=== PATIENT | male | born 1940 | race African-American/Black ===

== ENCOUNTER 2017-07-20 23:29 | Emergency (ER) | payer OTHER ==
[~2017-07-20] VITALS: Ht 167.6 cm; Wt 77.0 kg
[2017-07-20] MEDS ORDERED: SODIUM CHLORIDE 0.9% 1,000 ML IV ONE (23:38)
[2017-07-21 02:12] VITALS: BP 154/92
== END 2017-07-21 02:10 | disposition home or self-care (01) ==
LOC: ER 23:51
DX: S09.90XA Unspecified injury of head, initial encounter (principal); S39.012A Strain of muscle, fascia and tendon of lower back, initial encounter; S16.1XXA Strain of muscle, fascia and tendon at neck level, initial encounter; I10 Essential (primary) hypertension; E11.9 Type 2 diabetes mellitus without complications; F10.10 Alcohol abuse, uncomplicated; W10.9XXA Fall (on) (from) unspecified stairs and steps, initial encounter; Y93.89 Activity, other specified; Y92.89 Other specified places as the place of occurrence of the external cause; Y99.8 Other external cause status
CPT/HCPCS: 70450; 72125; 72131; 73562; 93005; 99284; J7030; 96360; 99285

== ENCOUNTER 2023-01-27 20:03 | Emergency (ER) | payer OTHER ==
[~2023-01-27] VITALS: Ht 167.6 cm; Wt 60.0 kg
[2023-01-27 20:05] VITALS: TEMP 98.4; O2SAT 98
[2023-01-27 20:09] VITALS: BP 104/50; PULSE 91; RESP 22
[2023-01-27] MEDS ORDERED: SODIUM CHLORIDE 0.9% 1,000 ML IV ONE (20:15)
== END 2023-01-27 21:20 | disposition left against medical advice (07) ==
LOC: ER 20:03
DX: R06.09 Other forms of dyspnea (principal); R94.31 Abnormal electrocardiogram [ECG] [EKG]; E11.9 Type 2 diabetes mellitus without complications; I25.2 Old myocardial infarction; I10 Essential (primary) hypertension
CPT/HCPCS: 99283; 93005; J7030